=== PATIENT | female | born 1950 | race Caucasian/White ===

== ENCOUNTER 2016-08-15 09:22 | Outpatient (CLI) | payer OTHER | END 2016-08-15 09:23 | disposition home or self-care (01) | DX: C73 Malignant neoplasm of thyroid gland (principal); E89.0 Postprocedural hypothyroidism; Z78.0 Asymptomatic menopausal state ==

== ENCOUNTER 2016-08-15 09:34 | Outpatient (CLI) | payer OTHER | END 2016-08-15 09:35 | disposition home or self-care (01) | DX: Z13.820 Encounter for screening for osteoporosis (principal); C73 Malignant neoplasm of thyroid gland; Z78.0 Asymptomatic menopausal state; E89.0 Postprocedural hypothyroidism ==

== ENCOUNTER 2017-01-03 13:36 | Outpatient (CLI) | payer OTHER | END 2017-01-03 13:37 | disposition home or self-care (01) | DX: C73 Malignant neoplasm of thyroid gland (principal) ==

== ENCOUNTER 2017-09-29 10:45 | Outpatient (CLI) | payer MEDICARE, OTHER ==
[2017-09-29 12:18] LABS: THYROID STIMULATING HORMONE < 0.08 uIU/mL (0.34-5.60)
[2017-09-29 12:20] LABS: FREE T4 (FREE THYROXINE) 1.62 ng/dL (0.58-1.64)
[2017-10-03 11:17] LABS: THYROGLOBULIN 0.2 ng/mL
== END 2017-09-29 10:46 | disposition home or self-care (01) ==
LOC: LAB 10:45
PROVIDERS: ATTEND Internal Medicine Endocrinology, Diabetes & Metabolism
DX: C73 Malignant neoplasm of thyroid gland (principal); E03.9 Hypothyroidism, unspecified
CPT/HCPCS: 36415; 84432; 84439; 84443; 86800

== ENCOUNTER 2018-03-27 14:22 | Outpatient (CLI) | payer MEDICARE, OTHER ==
[2018-03-27 15:27] LABS: THYROID STIMULATING HORMONE < 0.08 uIU/mL (0.34-5.60)
[2018-03-27 15:29] LABS: FREE T4 (FREE THYROXINE) 1.48 ng/dL (0.58-1.64)
--- NOTE | 2018-03-27 20:40 | Ultrasound Report ---
Reason: PELVIC PAIN -FEMALE ONLY Procedure Date: 03/27/2018 Accession Number: [id number] / [id number] Procedure: US - Pelvic Complete CPT Code: FULL RESULT: EXAM: PELVIC ULTRASOUND EXAM DATE: 03/27/2018 04:18 PM. CLINICAL HISTORY: Pelvic pain - female only. COMPARISON: None. TECHNIQUE: Realtime transabdominal pelvic scan performed to identify the uterus and adnexa and as an overview of other pelvic structures, followed by transvaginal scan to provide greater detail of the uterus and adnexa, with static image documentation. FINDINGS: Uterus: 5.7 x 2.3 x 3.3 cm, volume 22.6 cc. Anteverted position. Heterogeneous myometrium. No mass. Masses: None. Endometrium: 1.4 mm. No endometrial mass or polyp.Not well seen due to body habitus. Cervix: Unremarkable. Right Ovary: Not well seen. 2.3 x 1.5 x 3.5 cm, volume 6.3 cc. Normal echotexture and blood flow. Left Ovary: 2.4 x 2.1 x 2.2 cm, volume 5.8 cc. Normal echotexture and blood flow. 1.2 x 0.8 x 0.9 cm complex left ovarian cyst containing debris. No vascular components or thickened septations or mural nodules noted. Volume measured 0.5 cc. Free Fluid: None. Other: Study limited due to body habitus and patient pain. IMPRESSION: 1. Study significantly limited by body habitus. 2. No uterine mass. 3. Endometrium not well seen. No focal mass or polyp. Incidental nabothian cyst. 4. Complex debris-containing avascular 1.2 cm left ovarian cyst. Otherwise, bilateral ovaries are normal. Consider short interval follow-up to document resolution. RADIA
[2018-03-29 15:32] LABS: THYROGLOBULIN 0.2 ng/mL
== END 2018-03-27 14:23 | disposition home or self-care (01) ==
LOC: DI 14:22
PROVIDERS: ATTEND Family Medicine
DX: R10.2 Pelvic and perineal pain (principal); C73 Malignant neoplasm of thyroid gland; E89.0 Postprocedural hypothyroidism
CPT/HCPCS: 36415; 76830; 76856; 84432; 84439; 84443; 86800

== ENCOUNTER 2018-10-11 11:54 | Outpatient (CLI) | payer MEDICARE, OTHER ==
[2018-10-11 13:04] LABS: THYROID STIMULATING HORMONE 0.17 uIU/mL (0.34-5.60)
[2018-10-11 13:06] LABS: FREE T4 (FREE THYROXINE) 1.35 ng/dL (0.58-1.64)
== END 2018-10-11 11:55 | disposition home or self-care (01) ==
LOC: LAB 11:54
PROVIDERS: ATTEND Internal Medicine Endocrinology, Diabetes & Metabolism
DX: C73 Malignant neoplasm of thyroid gland (principal); E89.0 Postprocedural hypothyroidism
CPT/HCPCS: 36415; 84432; 84439; 84443; 86800

== ENCOUNTER 2018-11-05 11:09 | Outpatient (CLI) | payer MEDICARE, OTHER ==
--- NOTE | 2018-11-05 15:28 | Ultrasound Report ---
Reason: PAPILLARY THYROID CANCER Procedure Date: 11/05/2018 Accession Number: [id number] / [id number] Procedure: US - Head or Neck Soft Tissue CPT Code: FULL RESULT: EXAM: THYROID ULTRASOUND. EXAM DATE: 11/05/2018 11:34 AM. CLINICAL HISTORY: Papillary thyroid cancer. COMPARISON: HEAD OR NECK SOFT TISSUE 08/15/2016 9:54 AM. TECHNIQUE: Real time sonographic imaging of the thyroid was performed by the gardening supervisor. Multiple public relations representative static images were saved for review. FINDINGS: THYROID GLAND: Thyroid is surgically absent. There is no identifiable thyroid tissue within the surgical bed. No masses appreciated. Stable compared to comparison exam 08/15/2016. LYMPH NODES: No adenopathy demonstrated in the central or lateral compartment. OTHER: None. IMPRESSION: Stable appearance of the thyroidectomy bed. No evidence of residual or recurrent thyroid parenchyma. No masses or adenopathy. Management recommendations are based on 2015 [place] [employer] Management Guidelines for Adult Patients with Thyroid Nodules and Differentiated Thyroid Cancer. RADIA
== END 2018-11-05 11:10 | disposition home or self-care (01) ==
LOC: DI 11:09
PROVIDERS: ATTEND Internal Medicine Endocrinology, Diabetes & Metabolism
DX: C73 Malignant neoplasm of thyroid gland (principal); E89.0 Postprocedural hypothyroidism
CPT/HCPCS: 76536

== ENCOUNTER 2019-01-28 | Outpatient (CLI) | payer MEDICARE, OTHER | END 2019-01-28 10:29 | disposition home or self-care (01) | DX: E03.9 Hypothyroidism, unspecified (principal) ==

== ENCOUNTER 2019-04-11 09:58 | Outpatient (CLI) | payer MEDICARE, OTHER ==
--- NOTE | 2019-04-11 11:56 | XRAY Report ---
Reason: GLOBUS SENSATION Procedure Date: 04/11/2019 Accession Number: [id number] / [id number] Procedure: FL - Esophogram CPT Code: FULL RESULT: EXAM: BARIUM ESOPHAGRAM EXAM DATE: 04/11/2019 11:11 AM. CLINICAL HISTORY: Globus sensation. COMPARISONS: None. TECHNIQUE: Routine double contrast esophagram. Fluoroscopy Time: 44 seconds. Number of Images: 34. FINDINGS: Swallowing Mechanism: Normal. No tracheal aspiration or penetration. Esophageal Motility: Normal peristaltic stripping wave. Mucosa: Normal. No ulcerations or masses. Gastroesophageal Junction: Minimal sliding hiatal hernia. No stricture, or significant reflux. Other: None. IMPRESSION: Minimal sliding hiatal hernia is noted. RADIA
== END 2019-04-11 09:59 | disposition home or self-care (01) ==
LOC: DI 09:58
PROVIDERS: ATTEND Internal Medicine Endocrinology, Diabetes & Metabolism
DX: K44.9 Diaphragmatic hernia without obstruction or gangrene (principal); F45.8 Other somatoform disorders; R13.19 Other dysphagia; R12 Heartburn; E66.01 Morbid (severe) obesity due to excess calories; I10 Essential (primary) hypertension
CPT/HCPCS: 74220

== ENCOUNTER 2019-05-13 13:38 | Outpatient (CLI) | payer MEDICARE, OTHER ==
[2019-05-13 15:15] LABS: THYROID STIMULATING HORMONE 1.71 uIU/mL (0.34-5.60)
[2019-05-13 15:17] LABS: FREE T4 (FREE THYROXINE) 1.1 ng/dL (0.58-1.64)
== END 2019-05-13 13:39 | disposition home or self-care (01) ==
LOC: LAB 13:38
PROVIDERS: ATTEND Internal Medicine Endocrinology, Diabetes & Metabolism
DX: C73 Malignant neoplasm of thyroid gland (principal); E89.0 Postprocedural hypothyroidism
CPT/HCPCS: 36415; 84432; 84439; 84443; 86800

== ENCOUNTER 2019-08-26 10:22 | Outpatient (CLI) | payer MEDICARE, OTHER ==
[2019-08-26 11:53] LABS: THYROID STIMULATING HORMONE 0.19 uIU/mL (0.34-5.60)
[2019-08-26 11:56] LABS: FREE T4 (FREE THYROXINE) 1.45 ng/dL (0.58-1.64)
== END 2019-08-26 10:23 | disposition home or self-care (01) ==
LOC: LAB 10:22
PROVIDERS: ATTEND Internal Medicine Endocrinology, Diabetes & Metabolism
DX: C73 Malignant neoplasm of thyroid gland (principal); E89.0 Postprocedural hypothyroidism; E66.01 Morbid (severe) obesity due to excess calories; R73.01 Impaired fasting glucose
CPT/HCPCS: 36415; 84439; 84443

== ENCOUNTER 2019-11-26 11:20 | Outpatient (CLI) | payer MEDICARE, OTHER ==
[2019-11-26 12:03] LABS: THYROID STIMULATING HORMONE 35.08 uIU/mL (0.34-5.60)
[2019-11-26 12:06] LABS: FREE T4 (FREE THYROXINE) 0.45 ng/dL (0.58-1.64)
== END 2019-11-26 11:21 | disposition home or self-care (01) ==
LOC: LAB 11:20
PROVIDERS: ATTEND Internal Medicine Endocrinology, Diabetes & Metabolism
DX: C73 Malignant neoplasm of thyroid gland (principal); E89.0 Postprocedural hypothyroidism
CPT/HCPCS: 36415; 84432; 84439; 84443; 86800

== ENCOUNTER 2019-12-25 10:55 | Outpatient (CLI) | payer MEDICARE, OTHER ==
[2019-12-25 12:10] LABS: THYROID STIMULATING HORMONE 18.92 uIU/mL (0.34-5.60)
[2019-12-25 12:12] LABS: FREE T4 (FREE THYROXINE) 0.55 ng/dL (0.58-1.64)
== END 2019-12-25 10:56 | disposition home or self-care (01) ==
LOC: LAB 10:55
PROVIDERS: ATTEND Internal Medicine Endocrinology, Diabetes & Metabolism
DX: C73 Malignant neoplasm of thyroid gland (principal); E89.0 Postprocedural hypothyroidism
CPT/HCPCS: 36415; 84432; 84439; 84443; 86800

== ENCOUNTER 2020-02-19 10:36 | Outpatient (CLI) | payer MEDICARE, OTHER ==
[2020-02-19 11:17] LABS: THYROID STIMULATING HORMONE 0.35 uIU/mL (0.34-5.60)
[2020-02-19 11:19] LABS: FREE T4 (FREE THYROXINE) 1.59 ng/dL (0.58-1.64)
== END 2020-02-19 10:37 | disposition home or self-care (01) ==
LOC: LAB 10:36
PROVIDERS: ATTEND Internal Medicine Endocrinology, Diabetes & Metabolism
DX: C73 Malignant neoplasm of thyroid gland (principal); E89.0 Postprocedural hypothyroidism
CPT/HCPCS: 36415; 84432; 84439; 84443; 86800

== ENCOUNTER 2020-04-15 10:50 | Outpatient (CLI) | payer MEDICARE, OTHER ==
[2020-04-15 11:38] LABS: THYROID STIMULATING HORMONE 0.7 uIU/mL (0.34-5.60)
[2020-04-15 11:40] LABS: FREE T4 (FREE THYROXINE) 1.36 ng/dL (0.58-1.64)
== END 2020-04-15 10:51 | disposition home or self-care (01) ==
LOC: LAB 10:50
PROVIDERS: ATTEND Internal Medicine Endocrinology, Diabetes & Metabolism
DX: C73 Malignant neoplasm of thyroid gland (principal); E89.0 Postprocedural hypothyroidism
CPT/HCPCS: 36415; 84432; 84439; 84443; 86800

== ENCOUNTER 2020-09-24 12:02 | Outpatient (CLI) | payer MEDICARE, OTHER ==
[2020-09-24 12:52] LABS: THYROID STIMULATING HORMONE 21.38 uIU/mL (0.34-5.60)
[2020-09-24 12:53] LABS: FREE T3 3.05 pg/mL (2.5-3.9)
[2020-09-24 12:54] LABS: FREE T4 (FREE THYROXINE) 0.7 ng/dL (0.58-1.64)
== END 2020-09-24 12:03 | disposition home or self-care (01) ==
LOC: LAB 12:02
PROVIDERS: ATTEND Internal Medicine Endocrinology, Diabetes & Metabolism
DX: C73 Malignant neoplasm of thyroid gland (principal); E89.0 Postprocedural hypothyroidism
CPT/HCPCS: 36415; 84432; 84439; 84443; 84481; 86800

== ENCOUNTER 2020-10-31 15:03 | Outpatient (CLI) | payer MEDICARE, OTHER ==
--- NOTE | 2020-10-31 17:29 | Ultrasound Report ---
PROCEDURE: Head or Neck Soft Tissue INDICATIONS: THYROID CA TECHNIQUE: Real time scanning was performed of the neck region of interest, with image documentation . COMPARISON: Prior neck ultrasound 11/05/2018 FINDINGS: The thyroid has been removed. Within the left thyroid bed, there is an irregular nodule wi th cystic and solid elements with central calcification that measures 2 x 2.1 x 1.7 cm. IMPRESSION: Cystic and solid lesion seen within the left thyroid bed that measures up to 2.1 cm. Differential neil gnosis includes thyroid cancer recurrence. Further evaluation is recommended, beginning either with a dedicated contrast enhanced neck CT or a [facility] thyroid scan. Reviewed by: Claude Tariq MD on 10/31/2020 4:28 PM ANNELISE Approved by: Claude Tariq MD on 10/31/2020 4:28 PM ANNELISE Station ID: [id number]
== END 2020-10-31 15:04 | disposition home or self-care (01) ==
LOC: DI 15:03
PROVIDERS: ATTEND Internal Medicine Endocrinology, Diabetes & Metabolism
DX: C73 Malignant neoplasm of thyroid gland (principal)

== ENCOUNTER 2020-12-11 14:28 | Outpatient (CLI) | payer MEDICARE, OTHER ==
[2020-12-11 15:18] LABS: THYROID STIMULATING HORMONE 8.01 uIU/mL (0.34-5.60)
[2020-12-11 15:19] LABS: FREE T3 3.51 pg/mL (2.5-3.9)
[2020-12-11 15:20] LABS: FREE T4 (FREE THYROXINE) 1.02 ng/dL (0.58-1.64)
== END 2020-12-11 14:29 | disposition home or self-care (01) ==
LOC: LAB 14:28
PROVIDERS: ATTEND Internal Medicine Endocrinology, Diabetes & Metabolism
DX: E89.0 Postprocedural hypothyroidism (principal)
CPT/HCPCS: 36415; 84439; 84443; 84481

== ENCOUNTER 2021-01-01 11:22 | Outpatient (CLI) | payer MEDICARE, OTHER | END 2021-01-01 11:23 | disposition home or self-care (01) | LOC: LAB 11:22 | PROVIDERS: ATTEND Surgery | DX: Z01.812 Encounter for preprocedural laboratory examination (principal); C73 Malignant neoplasm of thyroid gland; Z20.822 Contact with and (suspected) exposure to COVID-19 ==

== ENCOUNTER 2021-01-10 11:31 | Outpatient (CLI) | payer MEDICARE, OTHER | END 2021-01-10 11:32 | disposition EMS.NT | LOC: EMS 11:31 | DX: R42 Dizziness and giddiness (principal); R11.0 Nausea ==

== ENCOUNTER 2021-01-12 13:31 | Emergency (ER) | payer MEDICARE, OTHER ==
[2021-01-12 14:33] LABS: BASOPHILS # (AUTO) 0.1 10^3/uL (0.0-0.1); BASOPHILS % (AUTO) 0.4 %; EOSINOPHILS # (AUTO) 0.2 10^3/uL (0.0-0.7); EOSINOPHILS % (AUTO) 1.5 %; HCT - HEMATOCRIT 41.9 % (37.0-47.0); LYMPHOCYTES # (AUTO) 2.4 10^3/uL (1.5-3.5); LYMPHOCYTES % (AUTO) 21.4 %; MEAN CORPUSCULAR HEMOGLOBIN 30.6 pg (27.0-31.0); MEAN CORPUSCULAR HGB CONC 33.4 g/dL (32.0-36.0); MEAN CORPUSCULAR VOLUME 91.5 fL (81.0-99.0); MEAN PLATELET VOLUME 9.4 fL (7.9-10.8); MONOCYTES # (AUTO) 0.9 10^3/uL (0.0-1.0); NEUTROPHILS # (AUTO) 7.6 10^3/uL (1.5-6.6); NEUTROPHILS % (AUTO) 68.3 %; PLT - PLATELET COUNT 315 10^3/uL (130-450); RED BLOOD COUNT 4.58 10^6/uL (4.20-5.40); RED CELL DISTRIBUTION WIDTH 13.8 % (12.0-15.0); WHITE BLOOD COUNT 11.1 x10^3/uL (4.8-10.8)
--- NOTE | 2021-01-12 14:42 | XRAY Report ---
PROCEDURE: Chest 1 View X-Ray INDICATIONS: Chest Pain TECHNIQUE: One view of the chest was acquired. COMPARISON: none FINDINGS: Surgical changes and devices: None. Lungs and pleura: No pleural effusions or pneumothorax. Lungs are clear. Mediastinum: Mediastinal contours appear normal. Heart size is normal. Bones and chest wall: No suspicious bony lesions. Overlying soft tissues appear unremarkable. IMPRESSION: No acute pulmonary process. Reviewed by: Valencia Saenz MD on 01/12/2021 2:41 PM PDT Approved by: Valencia Saenz MD on 01/12/2021 2:41 PM PDT Station ID: [id number]
[2021-01-12 14:51] LABS: ALBUMIN 4.2 g/dL (3.2-5.5); ALBUMIN/GLOBULIN RATIO 1.1 (1.0-2.2); BILIRUBIN,TOTAL 0.5 mg/dL (0.2-1.0); CALCIUM 9.7 mg/dL (8.5-10.3); CREATININE 0.8 mg/dL (0.4-1.0); POTASSIUM 3.9 mmol/L (3.5-5.0); TOTAL PROTEIN 8.1 g/dL (6.7-8.2)
[2021-01-12] MEDS ORDERED: MECLIZINE 12.5 MG TABLET PO STA (14:52)
[2021-01-12] MEDS ORDERED: IOVERSOL 320 100 ML VIAL IVP ONE ×2 (14:54→16:14)
[2021-01-12 15:05] LABS: THYROID STIMULATING HORMONE 0.3 uIU/mL (0.34-5.60)
[2021-01-12 15:07] LABS: FREE T4 (FREE THYROXINE) 1.5 ng/dL (0.58-1.64)
[2021-01-12] MEDS ORDERED: SODIUM CHLORIDE 0.9% 1,000 ML IV STA (15:11)
--- NOTE | 2021-01-12 15:11 | ED Physician Documentation ---
History of Present Illness - Stated complaint Stated Complaint: DIZZINESS/SHAKING - Chief complaint Chief Complaint: General - Additonal information Additional information: 70-year-old female presents to the emergency department for evaluation of persistent dizziness. She reports that the sensation of the room spinning and it does get worse with movement. She states that for a long time she has had dizziness and it has always followed concerns of her thyroid. She had a history of a total thyroidectomy secondary to cancer about 7 years ago. 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 She reports that since then she has been feeling quite dizzy and nauseated though no vomiting. She is taking ibuprofen for discomfort. She is not on any opioids. She endorses some constipation but no abdominal pain or vomiting. She has no obvious focal neuro deficits. Review of Systems Constitutional: denies: Fever, Chills Nose: reports: Reviewed and negative Throat: reports: Reviewed and negative Cardiac: reports: Reviewed and negative GI: reports: Nausea. denies: Vomiting : reports: Reviewed and negative Skin: reports: Other (Well approximated and intact horizontal neck incision consistent with surgery.). denies: Rash Musculoskeletal: reports: Neck pain Neurologic: reports: Other (Vertigo). 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: Tubal ligation - Present Medications Home Medications: Ambulatory Orders Medication Instructions Recorded Confirmed Levothyroxine [Synthroid] 125 mg PO BID 01/12/21 01/12/21 Losartan [Cozaar] 50 mg PO DAILY 01/12/21 01/12/21 Meclizine [Antivert] 25 mg PO Q6H PRN #30 tablet 01/12/21 hydroCHLOROthiazide [Hydrodiuril] 12.5 mg PO DAILY 01/12/21 01/12/21 - Allergies Allergies/Adverse Reactions: Allergies Allergy/AdvReac Type Severity Reaction Status Date / Time Sulfa (Sulfonamide AdvReac Rash Verified 01/12/21 13:52 Antibiotics) - Social History Does the pt smoke?: No Smoking Status: Never smoker Does the pt drink ETOH?: No Does the pt have substance abuse?: No - Immunizations Immunizations are current?: No PD ED PE EXPANDED - General General: Alert, No acute distress, Other (obese) - Eyes Eyes: PERRL, Normal accommodation, Other (No nystagmus elicited with lateral gaze deviation) - Neck Neck: Other (Horizontal mid neck surgical incision well approximated without surrounding erythema or drainage.) - Cardiac Cardiac: Regular Rate, Radial strong equal, Pedal strong equal, Cap refill < 2 sec. No: Murmur Present - Respiratory Respiratory: Clear to ausultation mj. No: Distress, Labored - Abdomen Abdomen: Normal Bowel sounds - Derm Derm: Normal color, Warm and dry, Other (Well approximated surgical incision.) - Extremities Extremities: Normal. No: Deformity, Tenderness - Neuro Neuro: Alert and Oriented X 3, CNII-XII intact, Normal finger nose, Normal speech, Other (Could not complete the hints exam secondary to neck pain.) - GCS Eye Opening: Spontaneous Motor: Obeys Commands Verbal: Oriented Total: 15 Results - Vitals Vitals: Vital Signs - 24 hr 01/12/21 13:46 Temperature 36.6 C Heart Rate 88 Respiratory 15 Rate Blood Pressure 137/79 H O2 Saturation 99 Oxygen O2 Source Room air - EKG (time done) 1608 Rate: Rate (enter#) (81) Rhythm: NSR Prospect: Normal Intervals: Normal CA QRS: Poor R wave progression, Low voltage Ischemia: Normal ST segments Compare to prior EKG: Old EKG unavailable Computer interpretation: Agree with computer - Labs Labs: Laboratory Tests 01/12/21 01/12/21 01/12/21 14:29 14:29 14:29 WBC 11.1 H RBC 4.58 Hgb 14.0 Hct 41.9 MCV 91.5 MCH 30.6 MCHC 33.4 RDW 13.8 Plt Count 315 MPV 9.4 Neut # (Auto) 7.6 H Lymph # (Auto) 2.4 Levy # (Auto) 0.9 Eos # (Auto) 0.2 Baso # (Auto) 0.1 Absolute Nucleated RBC 0.00 Nucleated RBC % 0.0 Sodium 139 Potassium 3.9 Chloride 98 L Carbon Dioxide 31 Anion Gap 10.0 BUN 14 Creatinine 0.8 Estimated GFR (MDRD) 71 L Glucose 130 H Calcium 9.7 Total Bilirubin 0.5 AST 31 ALT 42 Alkaline Phosphatase 96 Troponin I High Sens 13.1 Total Protein 8.1 Albumin 4.2 Globulin 3.9 Albumin/Globulin Ratio 1.1 Lipase 27 TSH Free T4 01/12/21 14:29 WBC RBC Hgb Hct MCV MCH MCHC RDW Plt Count MPV Neut # (Auto) Lymph # (Auto) Levy # (Auto) Eos # (Auto) Baso # (Auto) Absolute Nucleated RBC Nucleated RBC % Sodium Potassium Chloride Carbon Dioxide Anion Gap BUN Creatinine Estimated GFR (MDRD) Glucose Calcium Total Bilirubin AST ALT Alkaline Phosphatase Troponin I High Sens Total Protein Albumin Globulin Albumin/Globulin Ratio Lipase TSH 0.30 L Free T4 1.50 - Rads (name of study) CXR Radiology: Final report received (no acute cardiopulmonary process) CT angio head Radiology: Final report received (No significant intracranial abnormality seen. No significant intracranial arterial Abnormalities are seen.) CT angio neck Radiology: Final report received (No hemodynamically significant stenosis can be seen within the arteries of the neck. Apparent recent thyroidectomy. Please correlate with patient history) PD MEDICAL DECISION MAKING - ED course Complexity details: reviewed results, re-evaluated patient, d/w patient, d/w family ED course: This is a well-appearing though morbidly obese 70-year-old female that presents to the emergency department with persistent vertiginous symptoms since she had thyroid surgery 1 week ago. She reports that in the past with thyroid disorder she has had dizziness. She did have some relief early in her symptoms with Zofran but none since. Due to her neck pain we are unable to complete the hints exam though she has no obvious focal neuro deficits she has normal speech fluid movement, normal finger-nose as well as a gait. Screening labs do not show any acute worrisome abnormality. She is corrected on levothyroxine. Her TSH today is 0.3 with a T4 of 1.5 essentially within normal limits. Given her age and the persistent vertiginous symptoms unable to completely attribute to peripheral etiology CT angio of the head and neck was completed without acute stenosis or abnormal arterial findings. Patient was given meclizine here in the emergency department as well as 1 L of IV fluids with marked improvement in symptoms. She will be prescribed meclizine on discharge. Recommend close follow-up with her ENT doctor as well as primary care for physician. Emergent return precautions were discussed. Departure - Departure Disposition: 01 Home, Self Care Clinical Impression: Vertigo Condition: Stable Record reviewed to determine appropriate education?: Yes Prescriptions: Meclizine [Antivert] 25 mg PO Q6H PRN #30 tablet PRN Reason: Vertigo Comments: Shy agosto are seen in the ER today for persistent dizziness. This is in the setting of recent surgery for a thyroid tumor. Your screening labs today were essentially normal. Your TSH is 0.3 and your T4 is 1.5. These are essentially within normal limits. We did do CAT scan angiograms of the head and neck that did not show any concerns with blood flow through those vessels or signs of stroke. You were given meclizine and medication use for motion sickness here in the emergency department with good improvement in your symptoms. You are also given a liter of IV fluids. I do recommend that you take meclizine twice daily as needed. Please return to the ER if you develop chest pain, have any fainting episodes, have slurred speech arm or leg weakness or feel that your symptoms are not improved. Please discuss this ED visit with your primary care doctor as soon as possible.
[2021-01-12] MEDS ORDERED: ONDANSETRON 4 MG/2 ML VIAL IVP STA (15:24)
--- NOTE | 2021-01-12 16:27 | CT Report ---
PROCEDURE: ANGIO HEAD W/WO INDICATIONS: L sided facial droop CONTRAST: IV CONTRAST: Optiray 320 ml: 80 PO CONTRAST: *NO PO CONTRAST TECHNIQUE: Precontrast 4.5 mm thick angled axial sections acquired from the foramen magnum to the vertex. Afte r the administration of intravenous contrast, 1 mm thick sections acquired through the [place] of Will is. Postcontrast 4.5 mm thick sections then re-acquired from the foramen magnum to the vertex. 3-di mensional vjtcvob-msoipevrq-glkfjhykhc (MIP) and/or volume rendering reformats were acquired of the c entral intracranial vasculature. For radiation dose reduction, the following was used: automated ex posure control, adjustment of mA and/or kV according to patient size. COMPARISON: Correlation is made with the accompanying neck angiogram, 01/12/2021. Correlation is also made with report only from prior head CT, 08/06/2009. FINDINGS: Image quality: There is streak artifact seen through the skull base. Anterior circulation: Intracranial internal carotid arteries are normal in size and flow. Note is m ariadne of a diminutive right A1 segment, with a correspondingly robust left A1 segment. This is consider ed to be a developmental variant of no clinical consequence. The flow within the paired anterior cer ebral arteries is otherwise normal and symmetric. The flow within the middle cerebral arteries is no rmal and symmetric. The anterior communicating artery is seen. No aneurysms are seen. Posterior circulation: Visualized portions of the vertebral arteries demonstrate normal caliber, and join to form a normal appearing basilar artery. Flow within the posterior cerebral arteries is norm al and symmetric. No aneurysms are seen. CSF spaces: Ventricles are normal in size and shape. Basal cisterns are patent. No extra-axial flu id collections. Brain: No midline shift. No intracranial bleeds or masses. Barrios-white matter interface appears int act. Skull and face: Calvarium and facial bones appear intact, without suspicious lesions. Sinuses: Visualized sinuses and mastoids are clear. IMPRESSION: No significant intracranial abnormality is seen. No significant intracranial arterial abnormalities are seen. Reviewed by: Claude Tariq MD on 01/12/2021 3:26 PM AKAMOL Approved by: Claude Tariq MD on 01/12/2021 3:26 PM AKDT Station ID: [id number]
--- NOTE | 2021-01-12 16:30 | CT Report ---
PROCEDURE: ANGIO NECK W INDICATIONS: L sided facial droop, L neck pain CONTRAST: IV CONTRAST: Optiray 320 ml: 80 PO CONTRAST: *NO PO CONTRAST TECHNIQUE: After the administration of intravenous contrast, 1.5 mm axial sections acquired from the aortic arch to the [place] of Silva. Coronal 3-D maximum intensity projection (MIP) and/or volume rendering ref ormats were then performed. For radiation dose reduction, the following was used: automated exposur e control, adjustment of mA and/or kV according to patient size. COMPARISON: Correlation is made with the accompanying head CT angiogram, 01/12/2021. Correlation is a lso made with report only from prior soft tissue neck CT, 1113. FINDINGS: Image quality: Excellent. Carotid system: The great vessels demonstrate a conventional anatomy as they arise from the aortic a rch. The origins of the common carotid arteries appear patent. The common carotid arteries demonstr ate normal calibers and courses. The bifurcation regions appear normal bilaterally. The internal ca rotid arteries demonstrate normal caliber and course. Posterior circulation: The origins of the vertebral arteries appear patent. The more superior porti ons of the vertebral arteries demonstrate normal course and caliber. They join to form a normal appe aring basilar artery. Soft tissues: Visualized neck soft tissues demonstrate no suspicious abnormalities. Postoperative c lips with soft tissue gas and fluid can be seen within the laminectomy bed. Bones: No suspicious bony lesions. Visualized cervical spine appears normally aligned. Degenerati ve changes are seen throughout, which are worst involving the lower cervical spine. IMPRESSION: No hemodynamically significant stenosis can be seen within the arteries of the neck. Apparent recent thyroidectomy. Please correlate with known patient history. The estimate of stenosis included in the report of the imaging study was calculated using the NASCET method Reviewed by: Claude Tariq MD on 01/12/2021 3:28 PM ANNELISE Approved by: Claude Tariq MD on 01/12/2021 3:28 PM ANNELISE Station ID: [id number]
[2021-01-12 18:06] VITALS: BP 161/86
== END 2021-01-12 18:08 | disposition home or self-care (01) ==
LOC: ED 13:31
DX: R42 Dizziness and giddiness (principal); I10 Essential (primary) hypertension
CPT/HCPCS: 36415; 70496; 70498; 71045; 80053; 83690; 84439; 84443; 84484; 85025; 93005; 96360; 96361; 99284; A9270; Q9967

== ENCOUNTER 2021-01-25 10:56 | Outpatient (CLI) | payer MEDICARE, OTHER ==
[2021-01-25 11:46] LABS: THYROID STIMULATING HORMONE 0.32 uIU/mL (0.34-5.60)
[2021-01-25 11:47] LABS: FREE T3 4.47 pg/mL (2.5-3.9)
[2021-01-25 11:48] LABS: FREE T4 (FREE THYROXINE) 1.42 ng/dL (0.58-1.64)
== END 2021-01-25 10:57 | disposition home or self-care (01) ==
LOC: LAB 10:56
PROVIDERS: ATTEND Internal Medicine Endocrinology, Diabetes & Metabolism
DX: C73 Malignant neoplasm of thyroid gland (principal); E89.0 Postprocedural hypothyroidism
CPT/HCPCS: 36415; 84439; 84443; 84481; 86800

== ENCOUNTER 2021-05-13 08:51 | Outpatient (CLI) | payer MEDICARE, OTHER ==
[2021-05-13 09:34] LABS: ESTIMATED AVERAGE GLUCOSE 148 mg/dL (70-100); HEMOGLOBIN A1c% 6.8 % (4.27-6.07)
[2021-05-13 09:44] LABS: CHOL/HDL RATIO 4.3 (<4.4); CHOLESTEROL 228 mg/dL; HDL CHOLESTEROL 53 mg/dL; LDL CHOLESTEROL,CALCULATED 137 mg/dL; LDL/HDL RATIO 2.6 (<4.4); TRIGLYCERIDES 191 mg/dL; VLDL CHOLESTEROL 38 mg/dL
== END 2021-05-13 08:52 | disposition home or self-care (01) ==
LOC: LAB 08:51
PROVIDERS: ATTEND Family Medicine
DX: R73.01 Impaired fasting glucose (principal); E78.5 Hyperlipidemia, unspecified
CPT/HCPCS: 36415; 80061; 83036; 83721

== ENCOUNTER 2021-07-14 11:29 | Outpatient (CLI) | payer MEDICARE, OTHER ==
[2021-07-14 12:20] LABS: CALCIUM 9.2 mg/dL (8.5-10.3); CREATININE 0.6 mg/dL (0.4-1.0); POTASSIUM 3.6 mmol/L (3.5-5.0)
[2021-07-14 12:35] LABS: T4 (THYROXINE) 8.36 ug/dL (6.09-12.23)
[2021-07-14 12:39] LABS: THYROID STIMULATING HORMONE 1.07 uIU/mL (0.34-5.60)
[2021-07-16 15:01] LABS: THYROGLOBULIN 0.7 ng/mL
== END 2021-07-14 11:30 | disposition home or self-care (01) ==
LOC: LAB 11:29
PROVIDERS: ATTEND Internal Medicine Endocrinology, Diabetes & Metabolism
DX: C73 Malignant neoplasm of thyroid gland (principal)
CPT/HCPCS: 36415; 80048; 84432; 84436; 84443; 86800

== ENCOUNTER 2022-03-01 11:13 | Outpatient (CLI) | payer MEDICARE, OTHER ==
[2022-03-01 12:01] LABS: CALCIUM 9.7 mg/dL (8.5-10.3); CREATININE 0.7 mg/dL (0.4-1.0); POTASSIUM 3.9 mmol/L (3.5-5.0)
[2022-03-01 12:06] LABS: ESTIMATED AVERAGE GLUCOSE 169 mg/dL (70-100); HEMOGLOBIN A1c% 7.5 % (4.27-6.07)
[2022-03-01 12:26] LABS: THYROID STIMULATING HORMONE 20.71 uIU/mL (0.34-5.60)
[2022-03-01 12:28] LABS: FREE T4 (FREE THYROXINE) 0.85 ng/dL (0.58-1.64)
== END 2022-03-01 11:14 | disposition home or self-care (01) ==
LOC: LAB 11:13
PROVIDERS: ATTEND Internal Medicine Endocrinology, Diabetes & Metabolism
DX: C73 Malignant neoplasm of thyroid gland (principal); E11.9 Type 2 diabetes mellitus without complications; E89.0 Postprocedural hypothyroidism
CPT/HCPCS: 36415; 80048; 83036; 84439; 84443; 84480; 86800

== ENCOUNTER 2022-04-12 10:44 | Outpatient (CLI) | payer MEDICARE, OTHER ==
[2022-04-12 11:32] LABS: T4 (THYROXINE) 9.05 ug/dL (6.09-12.23)
[2022-04-12 11:35] LABS: THYROID STIMULATING HORMONE 24.42 uIU/mL (0.34-5.60)
[2022-04-13 18:07] LABS: THYROGLOBULIN ANTIBODY <1.0 IU/mL (0.0-0.9); THYROID PEROXIDASE (TPO) AB <8 IU/mL (0-34)
== END 2022-04-12 10:45 | disposition home or self-care (01) ==
LOC: LAB 10:44
PROVIDERS: ATTEND Internal Medicine Endocrinology, Diabetes & Metabolism
DX: C73 Malignant neoplasm of thyroid gland (principal); E89.0 Postprocedural hypothyroidism
CPT/HCPCS: 36415; 84436; 84443; 84480; 86376; 86800

== ENCOUNTER 2022-05-12 10:57 | Outpatient (CLI) | payer MEDICARE, OTHER ==
[2022-05-12 11:43] LABS: THYROID STIMULATING HORMONE 19.55 uIU/mL (0.34-5.60)
[2022-05-12 11:45] LABS: FREE T4 (FREE THYROXINE) 0.78 ng/dL (0.58-1.64)
== END 2022-05-12 10:58 | disposition home or self-care (01) ==
LOC: LAB 10:57
PROVIDERS: ATTEND Internal Medicine Endocrinology, Diabetes & Metabolism
DX: E03.9 Hypothyroidism, unspecified (principal)
CPT/HCPCS: 36415; 84439; 84443

== ENCOUNTER 2022-05-29 12:04 | Emergency (ER) | payer MEDICARE, OTHER ==
--- NOTE | 2022-05-29 15:16 | Ultrasound Report ---
PROCEDURE: Duplex Ext Veins Right INDICATIONS: pain behind the knee radiates up thigh. TECHNIQUE: Real-time imaging, as well as color and pulse Doppler interrogation, were performed of the lower extr emity deep veins from the inguinal ligament to the popliteal fossa. COMPARISON: None. FINDINGS: The deep veins are normally compressible, and free of intraluminal thrombus. Color and pu lse Doppler demonstrate normal phasic intraluminal flow. There is normal augmentation response to di stal compression maneuver. There is a right popliteal fluid collection seen that measures 12.2 x 6.2 x 1.1 cm. Internal echoes c an be seen within this fluid collection. Extensive lower extremity edema is seen. Within the area of pain involving the posterior distal thigh , soft tissue edema is seen, without additional focal ultrasound abnormality. This study is limited by body habitus and patient immobility. IMPRESSION: No findings of deep venous thrombosis are seen. Complex/ruptured Glez's cyst versus hematoma seen involving the popliteal fossa. Soft tissue edema is seen throughout, including at the area of pain involving the posterior distal th igh. Reviewed by: Claude Tariq MD on 05/29/2022 2:15 PM [facility] Approved by: Claude Tariq MD on 05/29/2022 2:15 PM [facility] Station ID: [id number]
[2022-05-29 15:38] VITALS: BP 180/80
--- NOTE | 2022-05-29 15:59 | ED Physician Documentation ---
PD HPI LOWER EXT INJURY - Stated complaint Stated Complaint: RT LEG PX - Chief complaint Chief Complaint: Ext Problem - History obtained from History obtained from: Patient - Additional information Additional information: 71-year-old woman with history of thyroid disease and fibroid leg disease has had problems with her legs for quite some time but acutely over the last few days developed pain in the posterior right leg above the knee that is better with activity and worse after rest. 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 - Present Medications Home Medications: Ambulatory Orders Medication Instructions Recorded Confirmed Levothyroxine [Synthroid] 125 mg PO BID 01/12/21 01/12/21 Losartan [Cozaar] 50 mg PO DAILY 01/12/21 01/12/21 Meclizine [Antivert] 25 mg PO Q6H PRN #30 tablet 01/12/21 hydroCHLOROthiazide [Hydrodiuril] 12.5 mg PO DAILY 01/12/21 01/12/21 - Allergies Allergies/Adverse Reactions: Allergies Allergy/AdvReac Type Severity Reaction Status Date / Time azithromycin Allergy Rash Verified 05/29/22 12:46 lisinopril Allergy Respiratory Verified 05/29/22 12:46 Sulfa (Sulfonamide AdvReac Rash Verified 01/12/21 13:52 Antibiotics) Most antibiotics Allergy Rash Uncoded 05/29/22 12:46 - Social History Does the pt smoke?: No Smoking Status: Never smoker Does the pt drink ETOH?: No Does the pt have substance abuse?: No - Immunizations Immunizations are current?: No PD ED PE NORMAL - Vitals Vital signs reviewed: Yes - General General: Alert and oriented X 3, No acute distress - Extremities Extremities: Other (There is fullness above the popliteal fossa of the right leg with chronic venous stasis changes and edema of both legs.) - Neuro Neuro: Alert and oriented X 3, Normal speech Results - Vitals Vitals: Vital Signs - 24 hr 05/29/22 05/29/22 12:41 15:37 Temperature 36.0 C L 36.5 C Heart Rate 92 90 Respiratory 16 16 Rate Blood Pressure 193/81 H 180/80 H O2 Saturation 100 100 Oxygen O2 Source Room air - Rads (name of study) SerialDVT ultrasound of the right leg demonstrates a loculated fluid collection the above the knee consistent with ruptured Glez's cyst versus hemato Radiology: Final report received PD MEDICAL DECISION MAKING - ED course ED course: 71-year-old woman with acute leg pain and is found to have a hematoma versus Glez's cyst. This was discussed at length with her in follow-up and conservative care was advised. She declined prescription pain medication. Departure - Departure Disposition: 01 Home, Self Care Clinical Impression: Leg pain, right Condition: Good Record reviewed to determine appropriate education?: Yes Comments: You were seen today for a fluid collection behind and above your right knee. This could be hematoma versus a Glez's cyst. Both can be generally handled conservatively but not unreasonable to follow-up with an orthopedist if having persistent problems. Return for new or worsening symptoms. Also vascular surgery versus lymphedema specialist to confirm the diagnosis of fibroid leg disease.
== END 2022-05-29 16:04 | disposition home or self-care (01) ==
LOC: ED 12:04
DX: M79.604 Pain in right leg (principal)
CPT/HCPCS: 99282; 99284

== ENCOUNTER 2022-09-16 14:26 | Outpatient (CLI) | payer MEDICARE, OTHER ==
[2022-09-16 15:04] LABS: T4 (THYROXINE) 8.44 ug/dL (6.09-12.23)
[2022-09-16 15:11] LABS: THYROID STIMULATING HORMONE 38.29 uIU/mL (0.34-5.60)
--- NOTE | 2022-09-16 16:56 | Ultrasound Report ---
PROCEDURE: Head or Neck Soft Tissue INDICATIONS: THYROID CA TECHNIQUE: Real time scanning was performed of the neck region of interest, with image documentation . COMPARISON: Thyroid ultrasound 10/31/2020. FINDINGS: Status post thyroidectomy. Multiple (at least 5) hypoechoic masses are seen in the thyroid bed, large st of which is located on the right and measures up to 2.1 cm in maximum dimension IMPRESSION: Status post thyroidectomy. Multiple hypoechoic masses in the thyroid bed and bilateral neck are suspi cious for recurrent disease or jared metastases. Consider contrast-enhanced CT or MRI of the neck for further evaluation, versus nuclear medicine thyroid scan. Reviewed by: Keyon Aviles MD on 09/16/2022 4:55 PM PDT Approved by: Keyon Aviles MD on 09/16/2022 4:55 PM PDT Station ID: [id number]
[2022-09-16 21:36] LABS: ESTIMATED AVERAGE GLUCOSE 223 mg/dL (70-100); HEMOGLOBIN A1c% 9.4 % (4.27-6.07)
== END 2022-09-16 14:27 | disposition home or self-care (01) ==
LOC: DI 14:26
PROVIDERS: ATTEND Internal Medicine Endocrinology, Diabetes & Metabolism
DX: C73 Malignant neoplasm of thyroid gland (principal); E89.0 Postprocedural hypothyroidism; E11.9 Type 2 diabetes mellitus without complications
CPT/HCPCS: 36415; 83036; 84436; 84443; 84480

== ENCOUNTER 2022-09-21 15:50 | Outpatient (CLI) | payer MEDICARE, OTHER ==
--- NOTE | 2022-09-22 13:34 | Ultrasound Report ---
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 COMPARISON: None FINDINGS: Right lower extremity: Common femoral artery: No duplex performed secondary to patient mobility issues/pain/body habitus Deep femoral artery: No duplex performed, as above Proximal superficial femoral artery: No duplex performed, as above Mid superficial femoral artery: No duplex performed, as above. Distal superficial femoral artery: 79.8 cm/sec, with biphasic flow. Popliteal artery: 32.0 cm/sec, with biphasic flow. Posterior tibial artery: 34.7 cm/sec, with triphasic flow. Anterior tibial artery/dorsalis pedis: No duplex performed, as above Barrios-scale imaging description: Very limited examination. Inability to evaluate the common femoral t o the mid SFA as well as the anterior tibial. Normal waveforms and the distal SFA through the posteri or tibial. Left lower extremity: Common femoral artery: 105.9 cm/sec, with triphasic flow. Deep femoral artery: 79.3 cm/sec, with triphasic flow. Proximal superficial femoral artery: 74.1 cm/sec, with triphasic flow. Mid superficial femoral artery: 57.1 cm/sec, with triphasic flow. Distal superficial femoral artery: 50.6 cm/sec, with triphasic flow. Popliteal artery: 57.4 cm/sec, with triphasic flow. Posterior tibial artery: 46.2 cm/sec, with triphasic flow. Anterior tibial artery/dorsalis pedis: 46.6 cm/sec, with triphasic flow. Barrios-scale imaging description: Normal velocities and normal waveforms suggest no significant diseas e. IMPRESSION: 1. Suboptimal evaluation of the right lower extremity. 2. Grossly unremarkable left lower extremity arterial duplex. Comment: If clinically necessary to evaluate the right lower extremity arterial tree, consider CT ang iography of the aorta and lower extremity runoff vessels. Reviewed by: Mesfin Mack MD on 09/22/2022 1:33 PM PDT Approved by: Mesfin Mack MD on 09/22/2022 1:33 PM PDT Station ID: [id number]
== END 2022-09-21 15:51 | disposition home or self-care (01) ==
LOC: DI 15:50
PROVIDERS: ATTEND Internal Medicine Endocrinology, Diabetes & Metabolism
DX: I73.9 Peripheral vascular disease, unspecified (principal)
CPT/HCPCS: 93925

== ENCOUNTER 2022-11-14 06:57 | Outpatient (CLI) | payer MEDICARE, OTHER | END 2022-11-14 06:58 | disposition critical access hospital (66) | LOC: EMS 06:57 | DX: M54.2 Cervicalgia (principal) | CPT/HCPCS: A0425; A0429 ==

== ENCOUNTER 2022-11-14 07:07 | Emergency (ER) | payer MEDICARE, OTHER ==
[2022-11-14] MEDS ORDERED: MORPHINE 2 MG/ML CARPUJECT IVP STA (07:16)
--- NOTE | 2022-11-14 07:17 | ED Physician Documentation ---
History of Present Illness - Stated complaint Stated Complaint: NECK PX - History obtained from History obtained from: Patient - Additonal information Additional information: 72-year-old woman with history of recurrent thyroid cancer presents with right- sided neck pain starting yesterday morning. She sleeps in a chair routinely and felt like she just had a kink in her neck getting out of the chair yesterday morning. That said it was progressive throughout the day and quite painful despite ibuprofen. She denies weakness, numbness, tingling of the arms with this. It does radiate to the anterior neck and right collarbone area. No p rimary chest pain she. She is mildly nauseous with this. No dyspnea. PD PAST MEDICAL HISTORY - Past Medical History Cardiovascular: Hypertension Endocrine/Autoimmune: HyPOthyroidism - Past Surgical History Past Surgical History: Yes General: Cholecystectomy /[employer]: Tubal ligation - Present Medications Home Medications: Ambulatory Orders Medication Instructions Recorded Confirmed Levothyroxine [Synthroid] 125 mg PO BID 01/12/21 11/14/22 Losartan [Cozaar] 50 mg PO DAILY 01/12/21 11/14/22 hydroCHLOROthiazide [Hydrodiuril] 12.5 mg PO DAILY 01/12/21 11/14/22 Cyclobenzaprine [Flexeril] 10 mg PO TID PRN #20 tablet 11/14/22 - Allergies Allergies/Adverse Reactions: Allergies Allergy/AdvReac Type Severity Reaction Status Date / Time azithromycin Allergy Rash Verified 11/14/22 07:17 lisinopril Allergy Respiratory Verified 11/14/22 07:17 Sulfa (Sulfonamide AdvReac Rash Verified 11/14/22 07:17 Antibiotics) Most antibiotics Allergy Rash Uncoded 05/29/22 12:46 - Social History Does the pt smoke?: No Smoking Status: Never smoker Does the pt drink ETOH?: No Does the pt have substance abuse?: No - Immunizations Immunizations are current?: No PD ED PE NORMAL - Vitals Vital signs reviewed: Yes - General General: Alert and oriented X 3, No acute distress - HEENT HEENT: PERRL, EOMI - Neck Neck: Other (She is tender to the central and right neck posteriorly. There are thyroid masses anteriorly.) - Cardiac Cardiac: RRR, No murmur - Respiratory Respiratory: No respiratory distress, Clear bilaterally - Abdomen Abdomen: Non tender - Extremities Extremities: Other (Normal and equal bilateral instructional facilitator strength, thumb extension, interosseous strength, flexion and extension of the wrist, and sensation throughout the upper extremities) - Neuro Neuro: Alert and oriented X 3, Normal speech - Psych Psych: Normal mood, Normal affect Results - Vitals Vitals: Vital Signs - 24 hr 11/14/22 11/14/22 11/14/22 07:14 08:15 08:30 Temperature 36.6 C Heart Rate 91 82 79 Respiratory 20 16 16 Rate Blood Pressure 163/119 H 187/89 H 190/76 H O2 Saturation 98 98 100 11/14/22 11/14/22 11/14/22 09:08 09:09 13:38 Temperature Heart Rate 85 51 L 88 Respiratory 13 16 16 Rate Blood Pressure 221/105 H 177/81 H 180/67 H O2 Saturation 100 98 98 Oxygen O2 Source Room air - EKG (time done) 0721 EKG releavant findings:: EKG personally interpreted by author of this note. Relevant findings are: Rate: Rate (enter#) (95) Rhythm: NSR [place]: Normal Intervals: Normal IN QRS: Low voltage Ischemia: Normal ST segments - Labs Labs: Laboratory Tests 11/14/22 11/14/22 11/14/22 07:30 07:30 08:09 WBC 11.0 H RBC 4.85 Hgb 14.3 Hct 43.7 MCV 90.1 MCH 29.5 MCHC 32.7 RDW 14.6 Plt Count 319 MPV 10.1 Neut # (Auto) 8.2 H Lymph # (Auto) 1.7 [place] # (Auto) 0.8 Eos # (Auto) 0.1 Baso # (Auto) 0.1 Absolute Nucleated RBC 0.00 Nucleated RBC % 0.0 Sodium 137 Potassium 3.9 Chloride 96 L Carbon Dioxide 28 Anion Gap 13.0 BUN 17 Creatinine 0.6 Estimated GFR (MDRD) 99 Glucose 273 H Calcium 9.3 Troponin I High Sens 29.5 H* 11/14/22 09:42 WBC RBC Hgb Hct MCV MCH MCHC RDW Plt Count MPV Neut # (Auto) Lymph # (Auto) [place] # (Auto) Eos # (Auto) Baso # (Auto) Absolute Nucleated RBC Nucleated RBC % Sodium Potassium Chloride Carbon Dioxide Anion Gap BUN Creatinine Estimated GFR (MDRD) Glucose Calcium Troponin I High Sens 29.0 H* PD Medical Decision Making - ED course ED course: 72-year-old woman with history of recurrent thyroid cancer presents with right- sided neck pain most consistent with a muscular cause. Differential would include vertebral dissection, pain referred from her known thyroid cancer, or atypical ND. Her EKG was without ischemia. CBC relatively normal. BMP notable for hyperglycemia at 273. Troponin elevated at 29. My suspicion is that the troponin elevation is from her uncontrolled blood pressure and she was administered some metoprolol followed by IV labetalol here. Second troponin was checked after 2 hours and was flat at 29 so discussed with her that she proba pasquale needs to increase her antihypertensives. CT angiography was negative for vascular cause but did have evidence of recurrent thyroid cancer and follow-up with her oncologist at the [facility] was discussed as well as the need for ENT consultation eventually given the potential sinus abnormality. Patient and voiced understanding. They were given a copy of the CAT scan aid in follow-up. Patient did request BLS ride home. There was no criteria for a Medicare ambulance and they signed an ABN. Departure - Departure Disposition: 01 Home, Self Care Clinical Impression: Neck pain, Uncontrolled hypertension, Thyroid cancer Condition: Good Record reviewed to determine appropriate education?: Yes Instructions: ED Neck Pain No Trauma Prescriptions: Cyclobenzaprine [Flexeril] 10 mg PO TID PRN #20 tablet PRN Reason: Spasms Comments: As discussed, it seems like the actual neck pain you came in for was just muscular. We did a CT angiography of the neck which did not show any problems with the blood vessels or bones. That said you do have, as you know, recurrent thyroid cancer. Recommend you follow-up with your oncologist for that. Also there is potentially a mass in the left piriform sinus, you should follow-up with an ENT for visualization of that. We did find that your troponin level was mildly elevated but did not casket coverer time. My suspicion is that this is related to uncontrolled blood pressures. Recommend that you double your losartan to 100 mg a day, and follow-up with your primary care nurse practitioner for blood pressure recheck this week, potential cardiac referral as well. Return if worse. Discharge Date/Time: 11/14/22 13:39
[2022-11-14] MEDS ORDERED: KETOROLAC 15 MG/ML VIAL IVP STA (07:22)
[2022-11-14 07:43] LABS: BASOPHILS # (AUTO) 0.1 10^3/uL (0.0-0.1); BASOPHILS % (AUTO) 0.5 %; EOSINOPHILS # (AUTO) 0.1 10^3/uL (0.0-0.7); EOSINOPHILS % (AUTO) 1.2 %; HCT - HEMATOCRIT 43.7 % (37.0-47.0); HGB - HEMOGLOBIN 14.3 g/dL (12.0-16.0); LYMPHOCYTES # (AUTO) 1.7 10^3/uL (1.5-3.5); LYMPHOCYTES % (AUTO) 15.6 %; MEAN CORPUSCULAR HEMOGLOBIN 29.5 pg (27.0-31.0); MEAN CORPUSCULAR HGB CONC 32.7 g/dL (32.0-36.0); MEAN CORPUSCULAR VOLUME 90.1 fL (81.0-99.0); MEAN PLATELET VOLUME 10.1 fL (7.9-10.8); MONOCYTES # (AUTO) 0.8 10^3/uL (0.0-1.0); MONOCYTES % (AUTO) 6.9 %; NEUTROPHILS # (AUTO) 8.2 10^3/uL (1.5-6.6); NEUTROPHILS % (AUTO) 74.6 %; PLT - PLATELET COUNT 319 10^3/uL (130-450); RED BLOOD COUNT 4.85 10^6/uL (4.20-5.40); RED CELL DISTRIBUTION WIDTH 14.6 % (12.0-15.0)
[2022-11-14] MEDS ORDERED: iohexoL-300 100 ML VIAL ONE (07:50)
[2022-11-14] MEDS ORDERED: METOPROLOL 5 MG/5 ML VIAL IVP STA (08:06)
[2022-11-14] MEDS ORDERED: ASPIRIN CHEW 81 MG TABLET PO STA (08:06)
[2022-11-14] MEDS ORDERED: CYCLOBENZAPRINE 10 MG TABLET PO STA ×2 (08:12→12:43)
[2022-11-14 08:22] LABS: CALCIUM 9.3 mg/dL (8.5-10.3); CREATININE 0.6 mg/dL (0.4-1.0); POTASSIUM 3.9 mmol/L (3.5-5.0)
[2022-11-14] MEDS ORDERED: LABETALOL 20 MG/4 ML SYRINGE IVP STA (08:58)
--- NOTE | 2022-11-14 10:05 | CT Report ---
PROCEDURE: ANGIO NECK W INDICATIONS: R neck pain CONTRAST: 80ml Omnipaque 300 TECHNIQUE: After the administration of intravenous contrast, 1.5 mm axial sections acquired from the aortic arch to the [place] of [place]. Coronal 3-D maximum intensity projection (MIP) and/or volume rendering ref ormats were then performed. For radiation dose reduction, the following was used: automated exposur e control, adjustment of mA and/or kV according to patient size. COMPARISON: CTA head and neck dated 01/12/2021. Thyroid ultrasound dated 08/15/2016, thyroid ultrasoun d dated 10/31/2020 FINDINGS: Image quality: Excellent. Carotid system: The great vessels demonstrate a conventional anatomy as they arise from the aortic a rch. The origins of the common carotid arteries appear patent. The common carotid arteries demonstr ate normal calibers and courses. The bifurcation regions appear normal bilaterally. The internal ca rotid arteries demonstrate normal caliber and course. No dissection. Posterior circulation: The origins of the vertebral arteries appear patent. The more superior porti ons of the vertebral arteries demonstrate normal course and caliber. They join to form a normal appe aring basilar artery. No dissection. Soft tissues: There is effacement of the left piriform sinus. A mucosal lesion cannot be excluded. Re ference image 143/5. In this patient with remote thyroidectomy, local recurrent thyroid mass is prese nt, a known finding on the previous study. Thyroid tissue measures approximately 4.3 x 3.1 cm on imag e 47/2. Bones: No suspicious bony lesions. Visualized cervical spine appears normally aligned. IMPRESSION: 1. No evidence of carotid dissection or vertebral artery dissection. Normal caliber arterial vessels. No significant stenosis. 2. Findings are consistent with likely recurrent thyroid carcinoma in the thyroid bed. 3. Effacement of the left piriform sinus. Cannot exclude a mucosal lesion. Recommend ENT referral for direct visualization. The estimate of stenosis included in the report of the imaging study was calculated using the NASCET method CLINICAL RECOMMENDATION STATEMENTS: In patients <35 years with an ITN detected on CT, MRI, or extrathyroidal ultrasound, the Committee re commends further evaluation with dedicated thyroid ultrasound if the nodule is "e1 cm and has no susp icious imaging features, and if the patient has normal life expectancy. In patients "e35 years with an ITN detected on CT, MRI, or extrathyroidal ultrasound, the Committee r ecommends further evaluation with dedicated thyroid ultrasound if the nodule is "e1.5 cm and has no s uspicious imaging features, and if the patient has normal life expectancy. (ACR, 2014) Reviewed by: Mesfin Mack MD on 11/14/2022 10:03 AM PDT Approved by: Mesfin Mack MD on 11/14/2022 10:03 AM PDT Station ID: [id number]
[2022-11-14] MEDS ORDERED: iohexoL-300 100 ML VIAL IVP ONE (12:07)
[2022-11-14 13:41] VITALS: BP 180/67
== END 2022-11-14 13:39 | disposition home or self-care (01) ==
LOC: ED 07:07
DX: M54.2 Cervicalgia (principal); I10 Essential (primary) hypertension; D44.0 Neoplasm of uncertain behavior of thyroid gland
CPT/HCPCS: 36415; 70498; 80048; 84484; 85025; 93005; 96374; 96375; 99284; A9270; Q9967

== ENCOUNTER 2022-11-14 13:45 | Outpatient (CLI) | payer MEDICARE, OTHER | END 2022-11-14 13:46 | disposition home or self-care (01) | LOC: EMS 13:45 | PROVIDERS: ATTEND Emergency Medicine | DX: M54.2 Cervicalgia (principal) ==

== ENCOUNTER 2022-12-14 14:23 | Outpatient (CLI) | payer MEDICARE, OTHER ==
[2022-12-14 14:53] LABS: BASOPHILS # (AUTO) 0.1 10^3/uL (0.0-0.1); BASOPHILS % (AUTO) 0.7 %; EOSINOPHILS # (AUTO) 0.2 10^3/uL (0.0-0.7); EOSINOPHILS % (AUTO) 1.7 %; HCT - HEMATOCRIT 45.3 % (37.0-47.0); HGB - HEMOGLOBIN 14.6 g/dL (12.0-16.0); LYMPHOCYTES # (AUTO) 1.8 10^3/uL (1.5-3.5); LYMPHOCYTES % (AUTO) 17.5 %; MEAN CORPUSCULAR HEMOGLOBIN 29.1 pg (27.0-31.0); MEAN CORPUSCULAR HGB CONC 32.2 g/dL (32.0-36.0); MEAN CORPUSCULAR VOLUME 90.4 fL (81.0-99.0); MEAN PLATELET VOLUME 9.9 fL (7.9-10.8); MONOCYTES # (AUTO) 0.8 10^3/uL (0.0-1.0); MONOCYTES % (AUTO) 7.4 %; NEUTROPHILS # (AUTO) 7.5 10^3/uL (1.5-6.6); NEUTROPHILS % (AUTO) 71.4 %; PLT - PLATELET COUNT 307 10^3/uL (130-450); RED BLOOD COUNT 5.01 10^6/uL (4.20-5.40); RED CELL DISTRIBUTION WIDTH 14.4 % (12.0-15.0); WHITE BLOOD COUNT 10.5 x10^3/uL (4.8-10.8)
[2022-12-14 15:44] LABS: THYROID STIMULATING HORMONE 25.72 uIU/mL (0.34-5.60)
[2022-12-14 15:47] LABS: ALBUMIN 4.1 g/dL (3.2-5.5); ALKALINE PHOSPHATASE 86 IU/L (42-121); ALT ALANINE AMINOTRANSFERASE 35 IU/L (10-60); AST ASPARTATE AMINOTRANSFERASE 31 IU/L (10-42); BILIRUBIN,TOTAL 0.6 mg/dL (0.2-1.0); BUN - BLOOD UREA NITROGEN 20 mg/dL (6-20); CALCIUM 9.5 mg/dL (8.5-10.3); CARBON DIOXIDE - CO2 26 mmol/L (21-32); CHLORIDE 97 mmol/L (101-111); CHOL/HDL RATIO 5.1 (<4.4); CHOLESTEROL 277 mg/dL; CREATININE 0.7 mg/dL (0.4-1.0); GFR - MDRD 83 (>89); GLUCOSE 314 mg/dL (70-100); HDL CHOLESTEROL 54 mg/dL; POTASSIUM 4.1 mmol/L (3.5-5.0); SODIUM 135 mmol/L (135-145); TOTAL PROTEIN 8.1 g/dL (6.7-8.2); TRIGLYCERIDES 429 mg/dL
[2022-12-14 16:15] LABS: LDL CHOLESTEROL,DIRECT 172 mg/dL; LDLD/HDL RATIO 3.2 (<4.4)
[2022-12-14 16:26] LABS: FREE T4 (FREE THYROXINE) 0.83 ng/dL (0.58-1.64)
[2022-12-14 20:54] LABS: ESTIMATED AVERAGE GLUCOSE 266 mg/dL (70-100); HEMOGLOBIN A1c% 10.9 % (4.27-6.07)
== END 2022-12-14 14:24 | disposition home or self-care (01) ==
LOC: LAB 14:23
PROVIDERS: ATTEND Nurse Practitioner Family
DX: I10 Essential (primary) hypertension (principal); E11.65 Type 2 diabetes mellitus with hyperglycemia
CPT/HCPCS: 36415; 80053; 80061; 83036; 83721; 84439; 84443; 85025

== ENCOUNTER 2022-12-20 13:14 | Outpatient (CLI) | payer MEDICARE, OTHER ==
[2022-12-20] MEDS ORDERED: LIDOCAINE-MPF 1% 5 ML VIAL ONE (13:39)
--- NOTE | 2022-12-20 16:13 | Ultrasound Report ---
PROCEDURE: FNA Bx w/US Gdn 1st Les INDICATIONS: THYROID MASS, THYROID CANCER TECHNIQUE: The indications, alternatives, benefits, risks, and complications of the procedure were explained to the patient. Written informed consent was obtained and placed in the chart. The area of interest wa s examined sonographically and a site was chosen for ultrasound guided percutaneous sampling. The sk in was prepared and draped in the usual fashion, and anesthetized with 1% lidocaine infiltrated from the skin down to the lesion. Multiple passes were then performed, with [facility]. A bandage was applied to the area of access at completion of t he study. COMPARISON: None. FINDINGS: Location(s) of lesion(s) sampled: Right neck mass within/adjacent to the thyroidectomy bed [place]: 25 gauge hypodermic needles. Number of passes: 6 Medications: 1% lidocaine for local anaesthesia. Complications: None. IMPRESSION: Successful ultrasound-guided right neck mass fine needle aspiration, with cytology results pending. Reviewed by: Betzaida Bella MD on 12/20/2022 4:12 PM PDT Approved by: Betzaida Bella MD on 12/20/2022 4:12 PM PDT Station ID: [id number]
[2022-12-20] MEDS ORDERED: LIDOCAINE-MPF 1% 5 ML VIAL TD ONE (16:37)
== END 2022-12-20 13:15 | disposition home or self-care (01) ==
LOC: DI 13:14
PROVIDERS: ATTEND Nurse Practitioner Family
DX: E07.9 Disorder of thyroid, unspecified (principal); C73 Malignant neoplasm of thyroid gland
CPT/HCPCS: 10005

== ENCOUNTER 2023-05-15 09:03 | Outpatient (CLI) | payer MEDICARE, OTHER ==
[2023-05-15 09:59] LABS: ALBUMIN 4.2 g/dL (3.2-5.5); BUN - BLOOD UREA NITROGEN 16 mg/dL (6-20); CALCIUM 9.2 mg/dL (8.5-10.3); CARBON DIOXIDE - CO2 29 mmol/L (21-32); CHLORIDE 97 mmol/L (101-111); CHOL/HDL RATIO 6.4 (<4.4); CHOLESTEROL 270 mg/dL; CREATININE 0.6 mg/dL (0.6-1.3); GFR - MDRD 99 (>89); GLUCOSE 269 mg/dL (74-104); HDL CHOLESTEROL 42 mg/dL; POTASSIUM 3.8 mmol/L (3.5-4.5); SODIUM 136 mmol/L (135-145); TRIGLYCERIDES 499 mg/dL (48-352)
[2023-05-15 10:08] LABS: CREATININE,URINE 113.2 mg/dL; MICROALBUM/CREATININE RATIO,UR 15.9 ug/mg (<30.0); MICROALBUMIN,URINE 1.8 mg/dL
[2023-05-15 10:13] LABS: THYROID STIMULATING HORMONE 6.34 uIU/mL (0.34-5.60)
[2023-05-15 11:27] LABS: LDL CHOLESTEROL,DIRECT 167 mg/dL (75-193)
[2023-05-15 11:54] LABS: ESTIMATED AVERAGE GLUCOSE 289 mg/dL (70-100); HEMOGLOBIN A1c% 11.7 % (4.27-6.07)
[2023-05-16 04:08] LABS: VITAMIN D 25-HYDROXY 40.9 ng/mL (30.0-100.0)
[2023-05-16 15:09] LABS: THYROGLOBULIN ANTIBODY <1.0 IU/mL (0.0-0.9); THYROID PEROXIDASE (TPO) AB 12 IU/mL (0-34)
== END 2023-05-15 09:04 | disposition home or self-care (01) ==
LOC: LAB 09:03
PROVIDERS: ATTEND Student in an Organized Health Care Education/Training Program
DX: C73 Malignant neoplasm of thyroid gland (principal); E55.9 Vitamin D deficiency, unspecified; E11.69 Type 2 diabetes mellitus with other specified complication
CPT/HCPCS: 36415; 80061; 80069; 82043; 82306; 82570; 83036; 83721; 83970; 84439; 84443; 86376; 86800

== ENCOUNTER 2023-07-18 10:39 | Outpatient (CLI) | payer MEDICARE, OTHER ==
[2023-07-18 11:50] LABS: CHOL/HDL RATIO 5.5 (<4.4); CHOLESTEROL 240 mg/dL; HDL CHOLESTEROL 44 mg/dL; LDL CHOLESTEROL,CALCULATED 117 mg/dL; LDL/HDL RATIO 2.7 (<4.4); TRIGLYCERIDES 393 mg/dL (48-352); VLDL CHOLESTEROL 79 mg/dL
[2023-07-18 11:52] LABS: CREATININE,URINE 46.1 mg/dL; MICROALBUM/CREATININE RATIO,UR 23.9 ug/mg (<30.0); MICROALBUMIN,URINE 1.1 mg/dL
[2023-07-18 12:09] LABS: THYROID STIMULATING HORMONE 2.28 uIU/mL (0.34-5.60)
== END 2023-07-18 10:40 | disposition home or self-care (01) ==
LOC: LAB 10:39
PROVIDERS: ATTEND Student in an Organized Health Care Education/Training Program
DX: E11.69 Type 2 diabetes mellitus with other specified complication (principal)
CPT/HCPCS: 36415; 80061; 81599; 82043; 82570; 83721; 84432; 84439; 84443; 84681; 86800

== ENCOUNTER 2023-10-04 10:40 | Outpatient (CLI) | payer MEDICARE, OTHER ==
[2023-10-04 17:52] LABS: CREATININE,URINE 32.4 mg/dL
[2023-10-04 17:56] LABS: ALBUMIN 4.1 g/dL (3.2-5.5); BUN - BLOOD UREA NITROGEN 21 mg/dL (6-20); CARBON DIOXIDE - CO2 30 mmol/L (21-32); CHLORIDE 98 mmol/L (101-111); CHOL/HDL RATIO 4.6 (<4.4); CHOLESTEROL 203 mg/dL; CREATININE 0.6 mg/dL (0.6-1.3); GFR - MDRD 99 (>89); GLUCOSE 157 mg/dL (74-104); HDL CHOLESTEROL 44 mg/dL; LDL CHOLESTEROL,CALCULATED 114 mg/dL; LDL/HDL RATIO 2.6 (<4.4); PHOSPHORUS 4.4 mg/dL (2.5-5.0); POTASSIUM 3.8 mmol/L (3.5-4.5); SODIUM 137 mmol/L (135-145); TRIGLYCERIDES 226 mg/dL (48-352); VLDL CHOLESTEROL 45 mg/dL
[2023-10-04 18:05] LABS: MICROALBUMIN,URINE < 0.7 mg/dL
[2023-10-04 18:06] LABS: THYROID STIMULATING HORMONE 0.01 uIU/mL (0.34-5.60)
[2023-10-04 21:00] LABS: ESTIMATED AVERAGE GLUCOSE 174 mg/dL (70-100); HEMOGLOBIN A1c% 7.7 % (4.27-6.07)
[2023-10-05 19:07] LABS: THYROGLOBULIN ANTIBODY <1.0 IU/mL (0.0-0.9); THYROGLOBULIN BY IMA 0.3 ng/mL (1.5-38.5)
== END 2023-10-04 10:41 | disposition home or self-care (01) ==
LOC: LAB.N 10:40
PROVIDERS: ATTEND Student in an Organized Health Care Education/Training Program
DX: E11.69 Type 2 diabetes mellitus with other specified complication (principal)
CPT/HCPCS: 36415; 80061; 80069; 82043; 82088; 82570; 83036; 83721; 83835; 84244; 84439; 84443; 86800

== ENCOUNTER 2023-10-09 08:22 | Outpatient (CLI) | payer MEDICARE, OTHER | END 2023-10-09 08:23 | disposition home or self-care (01) | LOC: LAB.N 08:22 | PROVIDERS: ATTEND Student in an Organized Health Care Education/Training Program | DX: E11.69 Type 2 diabetes mellitus with other specified complication (principal) | CPT/HCPCS: 36415; 82533 ==

== ENCOUNTER 2023-12-21 10:51 | Outpatient (CLI) | payer MEDICARE, OTHER ==
[2023-12-21 18:33] LABS: MICROALBUMIN,URINE < 0.7 mg/dL
[2023-12-21 18:45] LABS: THYROID STIMULATING HORMONE < 0.01 uIU/mL (0.34-5.60)
[2023-12-21 21:13] LABS: ESTIMATED AVERAGE GLUCOSE 143 mg/dL (70-100); HEMOGLOBIN A1c% 6.6 % (4.27-6.07)
== END 2023-12-21 10:52 | disposition home or self-care (01) ==
LOC: LAB.N 10:51
PROVIDERS: ATTEND Student in an Organized Health Care Education/Training Program
DX: E11.69 Type 2 diabetes mellitus with other specified complication (principal); E27.8 Other specified disorders of adrenal gland
CPT/HCPCS: 36415; 81599; 82043; 82570; 82627; 83036; 84439; 84443